=== PATIENT | female | born 1970 | race Caucasian/White ===

== ENCOUNTER → 2023-11-20 12:04 | Day surgery (SDC) | payer BC, SELFPAY | LOC: SDS 12:04 | PROVIDERS: ATTENDING PHYSICIAN Nurse Practitioner Adult Health; REFERRING PHYSICIAN Psychiatry & Neurology Neuromuscular Medicine | DX: I66.01 Occlusion and stenosis of right middle cerebral artery (principal); G43.909 Migraine, unspecified, not intractable, without status migrainosus; R20.0 Anesthesia of skin; R29.898 Other symptoms and signs involving the musculoskeletal system; Z86.73 Personal history of transient ischemic attack (TIA), and cerebral infarction without residual deficits | CPT/HCPCS: 70547; 70551; 70544 ==